=== PATIENT | female | born 1965 | race Two or more races ===

== ENCOUNTER 2022-12-19 11:18 | Outpatient (CLI) | payer OTHER | END 2022-12-19 11:30 | disposition home or self-care (01) | LOC: RAD 11:18 | PROVIDERS: ATTEND Orthopaedic Surgery | DX: M25.561 Pain in right knee (principal); M25.562 Pain in left knee; M25.512 Pain in left shoulder ==

== ENCOUNTER 2022-12-29 08:36 | Outpatient (CLI) | payer OTHER | END 2022-12-29 08:48 | disposition home or self-care (01) | LOC: MRI 08:36 | PROVIDERS: ATTEND Orthopaedic Surgery | DX: S83.201A Bucket-handle tear of unspecified meniscus, current injury, left knee, initial encounter (principal) | CPT/HCPCS: 73721 ==